=== PATIENT | male | born 1950 | race Caucasian/White ===

== ENCOUNTER → 2020-12-03 15:32 | Outpatient (BNVA) | payer MEDICARE, BC, SELFPAY | PROVIDERS: PCP Family Medicine; Referring Provider Family Medicine; Visit Provider Specialist | DX: M25.512 Pain in left shoulder (principal) | CPT/HCPCS: 73030 ==

== ENCOUNTER → 2022-03-09 13:38 | Outpatient (BNVA) | payer MEDICARE, BC, SELFPAY | PROVIDERS: PCP Family Medicine; Visit Provider Orthopaedic Surgery | DX: M72.0 Palmar fascial fibromatosis [Dupuytren] (principal) | CPT/HCPCS: 99203 ==

== ENCOUNTER → 2022-05-26 13:21 | Outpatient (BNVA) | payer MEDICARE, BC, SELFPAY | PROVIDERS: PCP Family Medicine; Visit Provider Dermatology | DX: D48.9 Neoplasm of uncertain behavior, unspecified (principal); L82.1 Other seborrheic keratosis; L81.4 Other melanin hyperpigmentation; L98.491 Non-pressure chronic ulcer of skin of other sites limited to breakdown of skin | CPT/HCPCS: 88305 ==

== ENCOUNTER → 2022-06-02 12:46 | Outpatient (BNVA) | payer MEDICARE, BC, SELFPAY | PROVIDERS: PCP Family Medicine; Visit Provider Thoracic Surgery (Cardiothoracic Vascular Surgery) | DX: I96 Gangrene, not elsewhere classified (principal); L98.412 Non-pressure chronic ulcer of buttock with fat layer exposed | CPT/HCPCS: 11042; 99213; A6212 ==

== ENCOUNTER → 2022-06-16 15:42 | Outpatient (BNVA) | payer MEDICARE, BC, SELFPAY | PROVIDERS: PCP Family Medicine; Visit Provider Thoracic Surgery (Cardiothoracic Vascular Surgery) | DX: I96 Gangrene, not elsewhere classified (principal); L98.412 Non-pressure chronic ulcer of buttock with fat layer exposed | CPT/HCPCS: 11042 ==

== ENCOUNTER → 2022-06-30 15:09 | Outpatient (BNVA) | payer MEDICARE, BC, SELFPAY | PROVIDERS: PCP Family Medicine; Visit Provider Thoracic Surgery (Cardiothoracic Vascular Surgery) | DX: I96 Gangrene, not elsewhere classified (principal); L98.412 Non-pressure chronic ulcer of buttock with fat layer exposed | CPT/HCPCS: 97597 ==

== ENCOUNTER → 2022-07-07 13:23 | Outpatient (BNVA) | payer MEDICARE, BC, SELFPAY | PROVIDERS: PCP Family Medicine; Visit Provider Thoracic Surgery (Cardiothoracic Vascular Surgery) | DX: I96 Gangrene, not elsewhere classified (principal); L98.412 Non-pressure chronic ulcer of buttock with fat layer exposed | CPT/HCPCS: 97597 ==

== ENCOUNTER → 2022-08-04 12:25 | Outpatient (BNVA) | payer MEDICARE, BC, SELFPAY | PROVIDERS: PCP Family Medicine; Visit Provider Family Medicine | DX: I10 Essential (primary) hypertension (principal); Z13.220 Encounter for screening for lipoid disorders; Z13.6 Encounter for screening for cardiovascular disorders; M19.012 Primary osteoarthritis, left shoulder; M25.562 Pain in left knee; R73.9 Hyperglycemia, unspecified; Z12.5 Encounter for screening for malignant neoplasm of prostate | CPT/HCPCS: 80053; 80061; 83036; 85025; G0103 ==

== ENCOUNTER 2023-11-04 15:18 | Outpatient (CLI) | payer MEDICARE, BC, SELFPAY ==
--- NOTE | 2023-11-04 15:21 | USCV_ITS ---
Jomar Joshi Age: 72 Gender: M : 1950 Exam Date: 11/04/2023 15:28 Ordering Phys: Shannon Ren MD Technologist: ANJALI Exam Location: [facility] – [place] Indication: Stenosis Risk Factors: Previous Vascular Surgery: Right Brachial BP: / Left Brachial BP: / Right Left Velocity (cm/s) Spectral Plaque Velocity (cm/s) Spectral Plaque Syst/Diast Broadening Syst/Diast Broadening 77.60/ 19.30 Prox CCA 93.70 / 18.40 78.10/ 21.90 Mid CCA 93.60 / 25.10 67.10/ 20.70 Distal CCA 75.60 / 23.30 135.40/22.40 Prox ICA 327.40/ 113.40 131.90/48.60 Mid ICA 77.10 / 19.50 138.70/34.50 Distal ICA 50.80 / 21.70 147.80 ECA 122.50 2.10 ICA/CCA 4.30 Antegrade Vertebral Antegrade 47.50/ 11.60 cm/s 53.20/ 18.10 cm/s Tri Subclavian Tri 78.80 90.50 CONCLUSIONS Right ICA stenosis 50-69% closer to 50%. Moderate calcified atheromatous plaque right carotid bulb/ICA. Left ICA stenosis 70-99%. Recommend CTA head and neck. Severe calcified atheromatous plaque left carotid bulb/ICA. Normal antegrade Doppler flow noted in the right vertebral artery. Normal antegrade Doppler flow noted in the left vertebral artery. Jaiden Olivo MD (Electronically Signed) Final Date: 04 November 2023 16:33 S
== END 2023-11-04 15:19 | disposition home or self-care (01) ==
LOC: RAD 15:18
PROVIDERS: PCP Family Medicine; Visit Provider Family Medicine
DX: I65.23 Occlusion and stenosis of bilateral carotid arteries (principal)
CPT/HCPCS: 93880

== ENCOUNTER → 2023-11-23 13:52 | Outpatient (CLI) | payer MEDICARE, BC, SELFPAY ==
--- NOTE | 2023-11-23 13:56 | CTR_ITS ---
PROCEDURE INFORMATION: Exam: CTA Neck With Contrast Exam date and time: 11/23/2023 2:23 PM Age: 73 years old Clinical indication: Abnormal findings; Abnormal carotid US; Patient HX: Follow up carotid occulsion and stenosis of bilateral carotid arteries; Additional info: Occlusion stenosis of bilateral carotid arteries TECHNIQUE: Imaging protocol: Computed tomographic angiography of the neck with contrast. Exam focused on the cervical segments of the vasculature. 3D rendering (Not supervised by radiologist): MIP and/or 3D reconstructed images were created by the technologist. Radiation optimization: All CT scans at this facility use at least one of these dose optimization techniques: automated exposure control; mA and/or kV adjustment per patient size (includes targeted exams where dose is matched to clinical indication); or iterative reconstruction. Contrast material: OMNI 350; Contrast volume: 100 ml; Contrast route: INTRAVENOUS (IV); COMPARISON: Recent carotid ultrasound images and report from 11/04/2023 are currently unavailable. No other prior relevant exams. RADIATION DOSE METRICS: Total DLP (mGy-cm): 265.19 FINDINGS: Aortic arch: No significant stenosis of the great vessels at their origins from the aortic arch. Right carotid: No significant stenosis of the right common carotid artery. Mild narrowing of the proximal right ECA. A combination of calcified and soft plaque produces estimated stenosis of 60% in the proximal right ICA. Left carotid: Soft and calcified plaque produce approximately 40% stenosis at the bifurcation and short-segment 70% stenosis at origin of left ICA. Distal to this stenosis, densely calcified plaque produces approximately 40% stenosis. No significant stenosis of proximal left ECA. Left vertebral: Left vertebral artery is patent without flow-limiting stenosis or dissection. Prominent kink of proximal left vertebral artery incidentally noted. Right vertebral: Right vertebral artery is patent without evidence of flow-limiting stenosis or dissection. Soft tissues: No acute abnormality of the neck soft tissues is seen. Bones: Severe chronic cervical degenerative disc disease and facet arthropathy, associated with variable degrees of chronic bony stenosis of the cervical canal and foramina. CT/CT angio neck [id number] IMPRESSION: 1. Bilateral carotid bifurcation and proximal ICA atherosclerosis with estimated stenosis 60% in the proximal right ICA and 70% in the proximal left ICA. 2. No hemodynamically significant vertebral artery stenosis identified. 3. Severe chronic cervical spondylosis. REFERENCES: NASCET CRITERIA. The degree of stenosis in the cervical segment of the internal carotid artery is based on NASCET criteria. Normal is no stenosis. Mild is less than 50% stenosis. Moderate is 50-69% stenosis. Severe is 70% to 99% stenosis. Total occlusion is no detectable patent lumen.
[2023-11-23] MEDS: iohexol 350 mg/mL 500 mL Btl (per mL) IV (14:38)
== END | disposition home or self-care (01) ==
LOC: RAD 13:52
PROVIDERS: PCP Family Medicine; Visit Provider Family Medicine
DX: I65.23 Occlusion and stenosis of bilateral carotid arteries (principal); M47.812 Spondylosis without myelopathy or radiculopathy, cervical region
CPT/HCPCS: 70498; Q9967

== ENCOUNTER → 2024-08-29 13:39 | Outpatient (BNVA) | payer MEDICARE, BC, SELFPAY | PROVIDERS: PCP Family Medicine; Visit Provider Student in an Organized Health Care Education/Training Program | DX: M17.0 Bilateral primary osteoarthritis of knee (principal) | CPT/HCPCS: 73560; 73565 ==

== ENCOUNTER 2024-08-29 15:28 | Outpatient (CLI) | payer MEDICARE, BC, SELFPAY | END 2024-08-29 15:29 | disposition home or self-care (01) | LOC: SPT 15:55 | PROVIDERS: PCP Family Medicine; Visit Provider Student in an Organized Health Care Education/Training Program | DX: Z46.89 Encounter for fitting and adjustment of other specified devices (principal); M17.0 Bilateral primary osteoarthritis of knee | CPT/HCPCS: 97760; L1851 ==

== ENCOUNTER → 2024-09-19 14:17 | Outpatient (BNVA) | payer MEDICARE, BC, SELFPAY | PROVIDERS: PCP Family Medicine; Visit Provider Nurse Practitioner Family | DX: L98.8 Other specified disorders of the skin and subcutaneous tissue (principal); L57.8 Other skin changes due to chronic exposure to nonionizing radiation; L81.4 Other melanin hyperpigmentation; D22.4 Melanocytic nevi of scalp and neck; L82.1 Other seborrheic keratosis; L57.0 Actinic keratosis | CPT/HCPCS: 17000; 99213 ==

== ENCOUNTER → 2024-09-26 11:06 | Outpatient (BNVA) | payer MEDICARE, BC, SELFPAY | PROVIDERS: PCP Family Medicine; Visit Provider Student in an Organized Health Care Education/Training Program | DX: M72.0 Palmar fascial fibromatosis [Dupuytren] (principal) | CPT/HCPCS: 73130; 99214 ==

== ENCOUNTER → 2024-12-05 15:08 | Outpatient (BNVA) | payer MEDICARE, BC, SELFPAY | PROVIDERS: Visit Provider Student in an Organized Health Care Education/Training Program | DX: M72.0 Palmar fascial fibromatosis [Dupuytren] (principal); M79.642 Pain in left hand; Z71.89 Other specified counseling | CPT/HCPCS: 26341; 29130; 99213; 99214 ==

== ENCOUNTER 2024-12-06 13:51 | Outpatient (CLI) | payer MEDICARE, BC, SELFPAY | END 2024-12-06 13:52 | disposition home or self-care (01) | LOC: SOT 13:51 | PROVIDERS: Visit Provider Student in an Organized Health Care Education/Training Program | DX: Z46.89 Encounter for fitting and adjustment of other specified devices (principal); M72.0 Palmar fascial fibromatosis [Dupuytren] | CPT/HCPCS: 97760; L3923 ==

== ENCOUNTER → 2025-01-02 15:23 | Outpatient (BNVA) | payer MEDICARE, BC, SELFPAY | PROVIDERS: Visit Provider Student in an Organized Health Care Education/Training Program | DX: M72.0 Palmar fascial fibromatosis [Dupuytren] (principal); Z71.89 Other specified counseling | CPT/HCPCS: 99213 ==

== ENCOUNTER → 2025-04-16 12:52 | Outpatient (BNVA) | payer MEDICARE, BC, SELFPAY | PROVIDERS: Visit Provider Student in an Organized Health Care Education/Training Program | DX: M17.0 Bilateral primary osteoarthritis of knee (principal) | CPT/HCPCS: 99213 ==

== ENCOUNTER → 2025-05-01 14:36 | Outpatient (BNVA) | payer MEDICARE, BC, SELFPAY | PROVIDERS: Visit Provider Student in an Organized Health Care Education/Training Program | DX: M25.512 Pain in left shoulder (principal); M19.012 Primary osteoarthritis, left shoulder | CPT/HCPCS: 73030; 99213 ==